=== PATIENT | male | born 1960 | race Caucasian/White ===

== ENCOUNTER → 2016-10-24 | Outpatient (CLI) | payer OTHER ==
[~2016-10-24] MED LIST: CARV12.52 PO; CARV6.252 PO; OXYC-57 PO
[2016-10-24 12:40] LABS: URINE APPEARANCE TURBID (CLEAR); URINE BILIRUBIN NEG (NEG); URINE COLOR YELLOW; URINE NITRITE NEG (NEG); URINE SPECIFIC GRAVITY 1.023 (1.000-1.030); UROBILINOGEN NEG (NEG); ZZUR CULT IF INDIC CLEAN CATCH NO
[2016-10-24 12:41] LABS: MANUAL MICROSCOPIC REQUIRED? NO; REVIEW REQ? NO
[2016-10-24 13:15] LABS: ESTIMATED AVERAGE GLUCOSE 128 mg/dl; HA1C FLAG Normal (Normal)
== END | disposition home or self-care (01) ==
LOC: C.LABBFT 07:52
PROVIDERS: ATTEND Internal Medicine
DX: R73.03 Prediabetes (principal)

== ENCOUNTER → 2016-10-29 | Outpatient (CLI) | payer OTHER | END | disposition home or self-care (01) | LOC: C.LABSPEC 12:33 → C.PATHSPEC 13:08 | PROVIDERS: ATTEND Internal Medicine | DX: R31.0 Gross hematuria (principal) ==

== ENCOUNTER → 2016-11-08 | Outpatient (CLI) | payer OTHER ==
[~2016-11-08] MED LIST changes: +MethylPREDNISolone HOME PACK 16 MG TAB PO SCH; +OPTIRAY 320 IV PRN
--- NOTE | 2016-11-08 15:52 | DIAGNOSTIC IMAGING REPORT ---
ABDOMEN AND PELVIS CT EXAMINATION PRE AND POST INTRAVENOUS CONTRAST CT DOSE: 2134.12 mGycm HISTORY: Hematuria GROSS HEMATURIA TECHNIQUE: Multiaxial CT images of the abdomen and pelvis were performed pre and post intravenous contrast enhancement. COMPARISON STUDY: None. FINDINGS: Lung bases are clear. The unenhanced component of the study shows several nonobstructing renal calcifications bilaterally measuring from 2 to 3 mm. Mild cortical scarring of both kidneys is also noted. The enhanced component of the study demonstrates liver spleen and pancreas to be unremarkable. Kidneys enhance uniformly. Renal collecting systems as well as ureters are unremarkable throughout. Bladder is midline. There are no significant filling defects. Prostate is mildly enlarged. Findings of chronic sigmoid diverticulosis. Bowel pattern is nonobstructive. IMPRESSION: 1. Multiple nonobstructing renal calcifications bilaterally. 2. Moderate cortical scarring of the kidneys bilaterally. 3. No significant space-occupying renal lesion 4. Mild prostate enlargement. 5. Chronic sigmoid diverticulosis. Electronically signed by: Nuno Lira M.D. 11/08/2016 3:50 PM Dictated Date/Time: 11/08/2016 3:45 PM
== END ==
LOC: C.CTS 14:56
PROVIDERS: ATTEND Internal Medicine
DX: R31.0 Gross hematuria (principal)

== ENCOUNTER → 2016-11-16 | Outpatient (CLI) | payer OTHER ==
[~2016-11-16] MED LIST changes: -MethylPREDNISolone HOME PACK 16 MG TAB PO SCH; -OPTIRAY 320 IV PRN
== END | disposition home or self-care (01) ==
LOC: C.PATHSPEC 15:33
PROVIDERS: ATTEND Urology
DX: R31.0 Gross hematuria (principal); R82.99 Other abnormal findings in urine

== ENCOUNTER → 2016-12-26 | Outpatient (CLI) | payer OTHER ==
--- NOTE | 2016-12-26 09:45 | DIAGNOSTIC IMAGING REPORT ---
KUB CLINICAL HISTORY: Gross hematuria. Nephrolithiasis. COMPARISON STUDY: CT of the abdomen and pelvis November 08, 2016. FINDINGS: Several bilateral renal calculi measure up to 4 mm. Calculus burden is similar to exam of November 08, 2016. No ureteral calculi are identified. Bowel gas pattern is normal. IMPRESSION: No significant change in bilateral nephrolithiasis. No ureteral calculi identified. Electronically signed by: Yousif Parada M.D. 12/26/2016 9:44 AM Dictated Date/Time: 12/26/2016 9:43 AM
== END | disposition home or self-care (01) ==
LOC: C.RAD 09:21
PROVIDERS: ATTEND Urology
DX: R31.0 Gross hematuria (principal)

== ENCOUNTER → 2017-01-01 | Outpatient (CLI) | payer OTHER | END | disposition home or self-care (01) | LOC: C.PATHSPEC 17:33 | PROVIDERS: ATTEND Urology | DX: R31.9 Hematuria, unspecified (principal) ==

== ENCOUNTER → 2017-03-05 | Outpatient (CLI) | payer OTHER | END | disposition home or self-care (01) | LOC: C.LABSPEC 17:14 | PROVIDERS: ATTEND Urology | DX: N20.0 Calculus of kidney (principal) ==

== ENCOUNTER → 2017-03-29 | Day surgery (SDC) | payer OTHER ==
[2017-03-05 13:25] VITALS: Ht 170.2 cm; Wt 118.2 kg
--- NOTE | 2017-03-08 13:00 | DIAGNOSTIC IMAGING REPORT ---
CHEST PREADMISSION(PA/LAT) CLINICAL HISTORY: Preoperative chest COMPARISON STUDY: No previous studies for comparison. FINDINGS: The cardiac and mediastinal contours are normal. There is no evidence of focal pulmonary consolidation. There is no evidence of failure. No pleural effusions are visualized.[ There is foreshortening of distal right clavicle, likely postsurgical. Degenerative changes are present within the dorsal spine with ankylosis. IMPRESSION: No active disease in the chest. Electronically signed by: Forrest Barnard M.D. 03/08/2017 12:59 PM Dictated Date/Time: 03/08/2017 12:59 PM
--- NOTE | 2017-03-08 13:43 | PAT Medication Instructions ---
Service Date Mar 08, 2017. Current Home Medication List Carvedilol (Coreg), 12.5 MG PO BID Medication Instructions For Your Scheduled Surgery - Take the following medications the morning of surgery with a sip of water OTHERWISE NOTHING TO EAT OR DRINK AFTER MIDNIGHT: Carvedilol (Coreg), 12.5 MG PO BID - Take the following medications as scheduled the night before surgery: Carvedilol (Coreg), 12.5 MG PO BID If you have any questions please call us at [phone] or [phone] or [phone]
[2017-03-08 14:38] LABS: HEMATOCRIT 43.6 % (42-52); MEAN CELL VOLUME 87.7 fL (80-100); MEAN PLATELET VOLUME 10.1 fL (7.4-10.4); PLATELET COUNT 319 K/uL (130-400); RED BLOOD COUNT 4.97 M/uL (4.7-6.1)
[2017-03-08 15:24] LABS: BUN/CREATININE RATIO 16.9 (10-20); CALCIUM 9.3 mg/dl (8.5-10.1); CREATININE 0.98 mg/dl (0.60-1.40); POTASSIUM 4.5 mmol/L (3.5-5.1); PROSTATE SPECIFIC ANTIGEN 0.499 ng/ml (0.000-4.000)
--- NOTE | 2017-03-28 16:09 | DIAGNOSTIC IMAGING REPORT ---
KUB CLINICAL HISTORY: 57 years-old Male presenting with calculus of the kidney. TECHNIQUE: Single supine view of the abdomen was obtained. COMPARISON: 12/26/2016. FINDINGS: Previously demonstrated bilateral nephrolithiasis with a 4 mm calculus noted at the lower pole of the right kidney and a 4 mm calculus at the lower pole the left kidney. The presence of gas and stool mildly degrades evaluation of the renal shadows. Within this limitation, additional possible right renal calculi may be present in the interpolar region and left lower pole. These are better appreciated on CT from 11/08/2016. No calcification noted along the expected courses of the ureters or over the bladder. Nonobstructive bowel gas pattern. Degenerative changes of the spine. IMPRESSION: 1. Bilateral nephrolithiasis not significant changed from prior. Electronically signed by: Kevan Clark M.D. 03/28/2017 4:08 PM Dictated Date/Time: 03/28/2017 4:05 PM
[~2017-03-29] VITALS: Ht 170.2 cm; Wt 118.2 kg
[~2017-03-29] MED LIST changes: -CARV6.252 PO; +CIPROFLOXACIN 400MG / D5W IV SCH; +DEXAMETHASONE SOD INJ 4 MG/ML VIAL ONE; +FENTANYL CITRATE INJ 50 MCG/1 ML 2 ML VIAL ONE; +LACTATED RINGER'S 1000ML 1,000 ML IV SCH; +LIDOCAINE HCL 2% 2 ML VIAL (20MG/ML) ONE; +MIDAZOLAM HCL 1 MG/ML 2ML VIAL ONE; +ONDANSETRON INJ 2 MG/ML 2 ML VIAL ONE; +OXYCODONE/ACETAMINOPHEN 5-325 TAB PO PRN; +PROPOFOL IV EMULSION 10 MG/ML 20 ML VIAL IV ONE
--- NOTE | 2017-03-29 07:28 | History & Physical Bridge Note ---
H&P Re-Evaluation Bridge Note: I have examined the patient, reviewed the History & Physical and in the interval since the performance of the History & Physical I have noted the following changes of clinical significance: No changes noted
--- NOTE | 2017-03-29 07:58 | Discharge Instructions-SurgCtr ---
Discharge Instructions Date of Service Mar 29, 2017. Visit Reason for Visit: Stones;Calculus Of Kidney N20.0 Discharge Discharge Diagnosis / Problem: STONES Discharge Goals Goal(s): Therapeutic intervention Activity Recommendations Activity Limitations: resume your previous activity (TAKE IT EASY TODAY) MEDICATIONS: Resume previous medications unless instructed otherwise by your surgeon. Resume pre-[facility] medication except for aspirin, coumadin or other blood thinners. __ Toradol 10 mg every 6 hours for initial pain. __ Lortab 5 mg 1-2 every 4 hours for pain. _X_ Percocet 5 mg 1-2 every 4 hours for pain. __ Macrodantin 50 mg x 3 a day. __ Flomax 1 tab daily one half (1/2) hour after supper. SPECIAL CARE INSTRUCTIONS: 1. Get KUB (x-ray) _X_ day before or day of office visit and bring x-ray to office __ get x-ray 2 days before and tell office you are getting x-rays when you call for the appointment. 2. Strain ALL urine. 3. Please call if you have a fever, chills, severe pain, or constant dribbling of urine. 4. Office phone number . FOLLOW UP VISIT: Please call the office to schedule a follow-up appointment at . Anesthesia . Post Anesthesia Instructions: If you have had General Anesthesia or IV Sedation: * Do not drive today. * Resume driving when surgeon permits. * Do not make important decisions or sign legal documents today. * Call surgeon for: 1. Temperature elevations greater than 101 degrees F. 2. Uncontrollable pain. 3. Excessive bleeding. 4. Persistent nausea and vomiting. 5. Medication intolerance (nausea, vomiting or rash). * For nausea and vomiting use only clear liquids such as: tea, soda, bouillon until nausea subsides, then gradually increase diet as tolerated. * If you have any concerns or questions, call your surgeon's office. If physician is unavailable and it is an emergency, call 911 or go to the nearest emergency room. . Diet Recommendations Home Diet: resume previous diet Pending Studies Studies pending at discharge: no Medical Emergencies . Who to Call and When: Medical Emergencies: If at any time you feel your situation is an emergency, please call 911 immediately. . Non-Emergent Contact Non-Emergency issues call your: Urologist Call Non-Emergent contact if: temperature is above 101.5, your pain is not controlled . . "Provider Documentation" section prepared by Joseph Cook. . [place] Drug Monitoring Program Search Results: patient reviewed within database
--- NOTE | 2017-03-29 08:03 | [facility] Operative Report ---
Operative Report Operative Date Mar 29, 2017. 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 Upon arrival appropriate preoperative antibiotics were administered and general anesthesia induced. The patient was placed in supine position and the stone was localized under fluoroscopy. A total of [__2500_] shocks were delivered to the stone. There appeared to be good fragmentation of the stone. Details of this procedure can be found on the [facility] information sheet. At the conclusion of the case the patient was extubated and taken to the PACU in stable condition. There were no complications. I attest to the content of the Intraoperative Record and any orders documented therein. Any exceptions are noted below.
[2017-03-29 09:05] VITALS: TEMP 36.6
[2017-03-29 09:17] VITALS: BP 135/87; PULSE 66; O2SAT 100
--- NOTE | 2017-03-29 09:26 | Anesthesia Progress Nt - [facility] ---
Anesthesia Post Op Note Date & Time Mar 29, 2017 at 09:26 Vital Signs Pain Intensity: 0 Vital Signs Past 12 Hours Date Time Temp Pulse Resp B/P (MAP) Pulse Ox O2 Delivery O2 Flow Rate FiO2 03/29/17 09:17 66 16 135/87 (103) 100 Room Air 03/29/17 09:05 36.6 62 16 126/76 (93) 99 Room Air 03/29/17 08:56 68 13 114/76 99 03/29/17 08:56 36.4 67 13 03/29/17 08:51 67 18 03/29/17 08:51 65 18 115/75 97 03/29/17 08:46 67 15 134/82 99 03/29/17 08:46 66 15 03/29/17 08:41 62 10 03/29/17 08:41 61 10 111/71 99 03/29/17 08:36 61 12 122/81 100 03/29/17 08:36 63 12 03/29/17 08:33 36.6 65 12 135/87 99 Mask 6 03/29/17 08:32 135/87 03/29/17 06:31 36.5 71 18 150/99 (116) 99 Room Air Notes Mental Status: alert / awake / arousable, participated in evaluation Pt Amnestic to Procedure: Yes Nausea / Vomiting: adequately controlled Pain: adequately controlled Airway Patency, RR, SpO2: stable & adequate BP & HR: stable & adequate Hydration State: stable & adequate Anesthetic Complications: no major complications apparent
== END | disposition home or self-care (01) ==
LOC: X.SURG 03-08 13:06
PROVIDERS: ATTEND Urology
DX: N20.0 Calculus of kidney (principal); R31.9 Hematuria, unspecified; M19.90 Unspecified osteoarthritis, unspecified site; I10 Essential (primary) hypertension; I34.0 Nonrheumatic mitral (valve) insufficiency; E66.9 Obesity, unspecified; F17.220 Nicotine dependence, chewing tobacco, uncomplicated; I07.1 Rheumatic tricuspid insufficiency; Z82.49 Family history of ischemic heart disease and other diseases of the circulatory system; Z83.3 Family history of diabetes mellitus; Z80.6 Family history of leukemia

== ENCOUNTER → 2017-04-08 | Outpatient (CLI) | payer OTHER ==
[~2017-04-08] MED LIST changes: -CIPROFLOXACIN 400MG / D5W IV SCH; -DEXAMETHASONE SOD INJ 4 MG/ML VIAL ONE; -FENTANYL CITRATE INJ 50 MCG/1 ML 2 ML VIAL ONE; -LACTATED RINGER'S 1000ML 1,000 ML IV SCH; -LIDOCAINE HCL 2% 2 ML VIAL (20MG/ML) ONE; -MIDAZOLAM HCL 1 MG/ML 2ML VIAL ONE; -ONDANSETRON INJ 2 MG/ML 2 ML VIAL ONE; -OXYCODONE/ACETAMINOPHEN 5-325 TAB PO PRN; -PROPOFOL IV EMULSION 10 MG/ML 20 ML VIAL IV ONE
--- NOTE | 2017-04-08 14:36 | DIAGNOSTIC IMAGING REPORT ---
KUB CLINICAL HISTORY: 57 years-old Male presenting with left-sided renal calculi. TECHNIQUE: Single supine view of the abdomen was obtained. COMPARISON: 03/28/[address] from 11/08/2016. FINDINGS: The presence of stool and gas mildly degrades evaluation of the renal shadows. Allowing for this limitation, the no change in position of the previously noted bilateral nephrolithiasis, including a 4 mm right lower pole calculus and a 4 mm left lower pole calculus. No additional left renal calculi visualized on the current radiograph. Additional calculi in the interpolar region of the right kidney not as well visualized on the current radiograph. No calcifications along the courses of the ureters or projecting over the urinary bladder. Nonobstructing bowel gas pattern. Degenerative changes of the spine. IMPRESSION: 1. Bilateral nephrolithiasis, unchanged. No radiographic evidence of progression of calculi. Electronically signed by: Kevan Clark M.D. 04/08/2017 2:35 PM Dictated Date/Time: 04/08/2017 2:31 PM
== END | disposition home or self-care (01) ==
LOC: C.RAD 14:06
PROVIDERS: ATTEND Urology
DX: N20.0 Calculus of kidney (principal)

== ENCOUNTER → 2017-05-06 | Outpatient (CLI) | payer OTHER ==
[2017-05-06 12:34] LABS: URINE APPEARANCE CLEAR (CLEAR); URINE BILIRUBIN NEG (NEG); URINE COLOR YELLOW; URINE EPITHELIAL CELL AUTO 0-5 /lpf (0-5); URINE NITRITE NEG (NEG); URINE SPECIFIC GRAVITY 1.025 (1.000-1.030); UROBILINOGEN NEG (NEG); ZZUR CULT IF INDIC CLEAN CATCH NO
[2017-05-06 12:37] LABS: MANUAL MICROSCOPIC REQUIRED? NO; REVIEW REQ? NO
[2017-05-06 13:07] LABS: ESTIMATED AVERAGE GLUCOSE 137 mg/dl; HA1C FLAG Normal (Normal)
[2017-05-06 13:17] LABS: BASO % 0.3 %; BASO ABS # 0.02 K/uL (0-0.2); COMPLETE YES; HEMATOCRIT 42.5 % (42-52); IG% 0.5 %; LYMPH % 19.7 %; LYMPH ABS # 1.57 K/uL (1.2-3.4); MEAN CELL VOLUME 88.4 fL (80-100); MEAN CORPUSCULAR HEMOGLOBIN 30.6 pg (25-34); MEAN CORPUSCULAR HGB CONC 34.6 g/dl (32-36); MEAN PLATELET VOLUME 10.5 fL (7.4-10.4); MONO % 10.8 %; NEUT % 65.7 %; PLATELET COUNT 263 K/uL (130-400); RED BLOOD COUNT 4.81 M/uL (4.7-6.1); WHITE BLOOD COUNT 7.95 K/uL (4.8-10.8)
[2017-05-06 13:34] LABS: ALT/SGPT 22 U/L (12-78); BLOOD UREA NITROGEN 16 mg/dl (7-18); BUN/CREATININE RATIO 14.6 (10-20); CALCIUM 9.2 mg/dl (8.5-10.1); CARBON DIOXIDE 28 mmol/L (21-32); CHLORIDE 102 mmol/L (98-107); CHOLESTEROL 159 mg/dl (0-200); GLUCOSE 133 mg/dl (70-99); POTASSIUM 4.4 mmol/L (3.5-5.1); SODIUM 137 mmol/L (136-145); TRIGLYCERIDES 115 mg/dl (0-150); VERY LOW DENSITY LIPOPROT CALC 23 mg/dl
[2017-05-06 13:44] LABS: ALKALINE PHOSPHATASE 67 U/L (45-117); AST/SGOT 15 U/L (15-37); CHOLESTEROL/HDL RATIO 4.3; HDL CHOLESTEROL 37 mg/dl; LDL CHOLESTEROL CALCULATED 99 mg/dl; PROSTATE SPECIFIC ANTIGEN 0.428 ng/ml (0.000-4.000)
== END | disposition home or self-care (01) ==
LOC: C.LABBFT 07:49
PROVIDERS: ATTEND Internal Medicine
DX: Z12.5 Encounter for screening for malignant neoplasm of prostate (principal); N30.01 Acute cystitis with hematuria; N52.9 Male erectile dysfunction, unspecified; R73.03 Prediabetes

== ENCOUNTER → 2018-03-04 | Outpatient (CLI) | payer OTHER ==
[~2018-03-04] MED LIST changes: -OXYC-57 PO
[2018-03-04 12:47] LABS: HEMOGLOBIN A1C 6.1 % (4.5-5.6)
== END | disposition home or self-care (01) ==
LOC: C.LABBFT 07:44
PROVIDERS: ATTEND Internal Medicine
DX: E78.5 Hyperlipidemia, unspecified (principal); R73.03 Prediabetes